=== PATIENT | male | born 1975 | race Caucasian/White ===

== ENCOUNTER 2017-07-22 21:03 | Inpatient (IN) | payer OTHER ==
[~2017-07-22 21:03] MED LIST: CIPR-9 PO; METR-1 PO; TRAM50TA PO
[2017-07-22 21:30] VITALS: BP 137/89; PULSE 81; RESP 20; TEMP 99.7; O2SAT 98
[2017-07-22] MEDS: SODIUM CHLOR 0.9% 1000 ML INJ 1,000 ML IV SCH (21:31)
[2017-07-22] MEDS ORDERED: cefTRIAXone INJ 1,000 MG in SODIUM CHLORIDE 0.9% INJ 100 ML IV SCH (22:00)
[2017-07-22] MEDS: metroNIDAZOLE 500 MG INJ 100 ML IV SCH (22:14)
[2017-07-23] VITALS: BP 119/67; PULSE 73; RESP 20; TEMP 97.6; O2SAT 98
[2017-07-23] MEDS: SODIUM CHLOR 0.9% 1000 ML INJ 1,000 ML IV SCH (04:07)
[2017-07-23] MEDS: metroNIDAZOLE 500 MG INJ 100 ML IV SCH (06:09)
[2017-07-23 08:00] VITALS: BP 137/88; PULSE 63; RESP 16; TEMP 97.8; O2SAT 96
--- NOTE | 2017-07-23 09:00 | HHI.HP ---
[facility] Primary [facility] Physician No Primary Care Physician Admission Diagnosis Diagnoses: Travel History International Travel<30 Days: Yes Contact w/Intl Traveler <30 Da: Yes History of Present Illness 41-year-old male with history of chronic constipation, as well as recent admission for diverticulitis, improved on antibiotics, discharged with a 10 day prescription for ciprofloxacin on 07/04, which he completed. He reports initial resolution of his symptoms, however reports now a 2 day history of 5 out of 10, nonradiating, intermittent sharp left lower quadrant pain. He also reports subjective fevers. Denies any nausea, vomiting, chest pain, shortness of breath , lightheadedness, dizziness. Review of Systems Except as stated in HPI: all other systems reviewed are Neg Past Family Social History Past Medical History Previous admission for diverticulitis 07/03/17 at discharge 07/04/17 with 10 day course of ciprofloxacin, flagyl Past Surgical History Patient denies any surgical history Reported Medications denies any meds Allergies: Coded Allergies: No Known Allergies (Verified Allergy, Unknown, 07/03/17) Family History Reviewed family history with the patient, and found to be currently noncontributory Social History Nonsmoker. Occasional alcohol use. Patient denies any illicit drug use. He is , from [place]. He is planning to go back On Thursday. Physical Exam Vital Signs Vital Signs Date Time Temp Pulse Resp B/P (MAP) Pulse Ox O2 Delivery O2 Flow Rate FiO2 07/23/17 00:00 97.6 73 20 119/67 (84) 98 07/22/17 21:30 99.7 81 20 137/89 (105) 98 Physical Exam GENERAL: This is a well-nourished, well-developed patient. aaox3 SKIN: No rashes, ecchymoses or lesions. Cool and dry. HEAD: Atraumatic. Normocephalic. No temporal or scalp tenderness. EYES: Pupils equal round and reactive. Extraocular motions intact. No scleral icterus. No injection or drainage. ENT: Nose without bleeding, purulent drainage or septal hematoma. Throat without erythema, tonsillar hypertrophy or exudate. Uvula midline. Airway patent. NECK: Trachea midline. No JVD or lymphadenopathy. Supple, nontender, no meningeal signs. CARDIOVASCULAR: Regular rate and rhythm without murmurs, gallops, or rubs. RESPIRATORY: Clear to auscultation. Breath sounds equal bilaterally. No wheezes , rales, or rhonchi. GASTROINTESTINAL: Abdomen soft, nondistended. No hepato-splenomegaly, or palpable masses. No guarding. Tender to moderate palpation in left lower quadrant. No rebound or guarding. MUSCULOSKELETAL: Extremities without clubbing, cyanosis, or edema. No joint tenderness, effusion, or edema noted. No calf tenderness. Negative Homans sign bilaterally. NEUROLOGICAL: Awake and alert. Cranial nerves II through XII intact. Motor and sensory grossly within normal limits. Five out of 5 muscle strength in all muscle groups. Normal speech. Imaging please see ct from 07/22 Caprini VTE Risk Assessment Caprini VTE Risk Assessment: Mod/High Risk (score >= 2) Caprini Risk Assessment Model Point Value = 1 Point Value = 2 Point Value = 3 Point Value = 5 Age 41-60 Minor surgery BMI > 25 kg/m2 Swollen legs Varicose veins or History of unexplained or recurrent spontaneous Oral contraceptives or hormone replacement Sepsis (< 1 month) Serious lung disease, including pneumonia (< 1 month) Abnormal pulmonary function Acute myocardial infarction Congestive heart failure (< 1 month) History of inflammatory bowel disease Medical patient at bed rest Age 61-74 Arthroscopic surgery Major open surgery (> 45 min) Laparoscopic surgery (> 45 min) Malignancy Confined to bed (> 72 hours) Immobilizing plaster cast Central venous access Age >= 75 History of VTE Family history of VTE Factor V Leiden Prothrombin [id number] Lupus anticoagulant Anticardiolipin antibodies Elevated serum homocysteine Heparin-induced thrombocytopenia Other congenital or acquired thrombophilia Stroke (< 1 month) Elective arthroplasty Hip, pelvis, or leg fracture Acute spinal cord injury (< 1 month) Prophylaxis Regimen Total Risk Factor Score Risk Level Prophylaxis Regimen 0-1 Low Early ambulation 2 Moderate Order ONE of the following: *Sequential Compression Device (SCD) *Heparin 5000 units SQ BID 3-4 Higher Order ONE of the following medications: *Heparin 5000 units SQ TID *Enoxaparin/Lovenox 40 mg SQ daily (WT < 150 kg, CrCl > 30 mL/min) *Enoxaparin/Lovenox 30 mg SQ daily (WT < 150 kg, CrCl > 10-29 mL/min) *Enoxaparin/Lovenox 30 mg SQ BID (WT < 150 kg, CrCl > 30 mL/min) AND/OR *Sequential Compression Device (SCD) 5 or more Highest Order ONE of the following medications: *Heparin 5000 units SQ TID (Preferred with Epidurals) *Enoxaparin/Lovenox 40 mg SQ daily (WT < 150 kg, CrCl > 30 mL/min) *Enoxaparin/Lovenox 30 mg SQ daily (WT < 150 kg, CrCl > 10-29 mL/min) *Enoxaparin/Lovenox 30 mg SQ BID (WT < 150 kg, CrCl > 30 mL/min) AND *Sequential Compression Device (SCD) Assessment and Plan Assessment and Plan Previous admission for diverticulitis 07/03/17 at discharge 07/04/17 with 10 day course of ciprofloxacin, bernardo Physician Certification 2 Midnight Certification Type: Admission for Inpatient Services Order for Inpatient Services The services are ordered in accordance with Medicare regulations or non- Medicare payer requirements, as applicable. In the case of services not specified as inpatient-only, they are appropriately provided as inpatient services in accordance with the 2-midnight benchmark. Estimated LOS (days): 2 days is the estimated time the patient will need to remain in the hospital, assuming treatment plan goals are met and no additional complications. Post-Hospital Plan: Not yet determined Daniel Huffman MD Jul 23, 2017 09:00
[2017-07-23] MEDS ORDERED: INFLUENZA VIRUS VACCINE (QUADRIVALENT) 0.5 ML SYR IM ONE (10:00)
[2017-07-23] MEDS ORDERED: POLYETHYLENE GLYCOL 17 GM PKG PO ONE (10:15)
[2017-07-23 12:00] VITALS: BP 136/44; PULSE 75; RESP 14; TEMP 98.2; O2SAT 97
[2017-07-23] MEDS ORDERED: CIPR-9 PO (12:59)
[2017-07-23] MEDS ORDERED: METR1TAB76 PO (12:59)
[2017-07-23] MEDS ORDERED: MIRA3350 PO (13:01)
[2017-07-24] MEDS ORDERED: POLYETHYLENE GLYCOL 17 GM PKG PO SCH (09:00)
== END 2017-07-23 14:51 | disposition home or self-care (01) | DRG 392 ==
LOC: PHEDDLT 21:03 → PH3A 21:04
PROVIDERS: ADMIT Internal Medicine; ATTEND Internal Medicine
DX: K57.92 Diverticulitis of intestine, part unspecified, without perforation or abscess without bleeding (principal); K59.09 Other constipation
CPT/HCPCS: 90471; 90686; G0008; J0696; J7030; Q2038